=== PATIENT | male | born 1970 | race Caucasian/White ===

== ENCOUNTER 2020-09-06 08:32 | Emergency (ER) | payer OTHER | END 2020-09-06 10:19 | disposition home or self-care (01) | LOC: ER1 08:32 | DX: S61.012A Laceration without foreign body of left thumb without damage to nail, initial encounter (principal); F17.210 Nicotine dependence, cigarettes, uncomplicated; Z23 Encounter for immunization; W31.89XA Contact with other specified machinery, initial encounter; Y92.69 Other specified industrial and construction area as the place of occurrence of the external cause; Y99.0 Civilian activity done for income or pay | CPT/HCPCS: 12001; 90471; 90715; 99283 ==

== ENCOUNTER 2021-07-29 13:33 | Inpatient (IN) | payer BC, MEDICAID ==
[~2021-07-29] VITALS: Ht 177.8 cm; Wt 79.4 kg
[2021-07-29 16:05] LABS: HEMOGLOBIN 17.6 gm/dl (14.0-17.5); RED BLOOD COUNT 5.1 M/UL (4.20-5.50); WHITE BLOOD COUNT 8.1 K/UL (4.5-11.0)
[2021-07-29 16:29] LABS: BUN/CREATININE RATIO 12 (0-10)
[2021-07-30 04:33] LABS: HEMOGLOBIN 15.2 gm/dl (14.0-17.5); RED BLOOD COUNT 4.43 M/UL (4.20-5.50)
[2021-07-30 04:40] LABS: BUN/CREATININE RATIO 12 (0-10)
[2021-07-31 04:45] LABS: RED BLOOD COUNT 4.72 M/UL (4.20-5.50); WHITE BLOOD COUNT 7.6 K/UL (4.5-11.0)
[2021-07-31 05:28] LABS: BUN/CREATININE RATIO 14 (0-10)
[2021-08-01 03:25] LABS: HEMOGLOBIN 16.3 gm/dl (14.0-17.5); RED BLOOD COUNT 4.78 M/UL (4.20-5.50); WHITE BLOOD COUNT 6.9 K/UL (4.5-11.0)
[2021-08-01 03:45] LABS: BUN/CREATININE RATIO 16 (0-10)
--- NOTE | 2021-08-01 16:24 | NUR ---
spoken with dr. menchaca of patient asking going home and [email or web address] menchaca stated she wanted for dr. trivedi of see patient. informed patient of this and patient acknowledged
[2021-08-02 06:41] LABS: HEMOGLOBIN 16.1 gm/dl (14.0-17.5); RED BLOOD COUNT 4.79 M/UL (4.20-5.50); WHITE BLOOD COUNT 6.9 K/UL (4.5-11.0)
[2021-08-02 07:15] LABS: BUN/CREATININE RATIO 16 (0-10)
[2021-08-02] MEDS ORDERED: AMOX TR-K CLV1 EAC4 PO (15:53)
[2021-08-02] MEDS ORDERED: ACETAMINOPHEN500 MG PO (15:53)
[2021-08-02] MEDS ORDERED: ASPIRIN 325MG325 MG PO (15:53)
[2021-08-02] MEDS ORDERED: LIPITOR10 MG PO (16:08)
[2021-08-02] MEDS ORDERED: NICOTINE PATCH1 EAC5 TD (16:08)
== END 2021-08-02 19:41 | disposition home or self-care (01) | DRG 603 ==
LOC: ER1 13:33 → M/S 17:10 → CDU 17:10 → M/S 18:24
PROVIDERS: Internal Medicine; Preventive Medicine Occupational Medicine; ADMIT Internal Medicine
DX: L03.116 Cellulitis of left lower limb (principal); Z20.822 Contact with and (suspected) exposure to COVID-19; E16.2 Hypoglycemia, unspecified; N40.0 Benign prostatic hyperplasia without lower urinary tract symptoms; F17.210 Nicotine dependence, cigarettes, uncomplicated; Z95.820 Peripheral vascular angioplasty status with implants and grafts
CPT/HCPCS: 36415; 73620; 73718; 75635; 80053; 80202; 81001; 82962; 83036; 83605; 83735; 85025; 85027; 85379; 85652; 86140; 87040; 93005; 93925; 93970; 96374; 96375; 99285; G0378; J3370; J7030; J7070; Q9967